=== PATIENT | female | born 1955 | race Caucasian/White ===

== ENCOUNTER 2018-05-04 19:52 | Observation (INO) ==
[2018-05-04] MEDS ORDERED: Ondansetron 4 MG/2 ML VIAL IVP ONE (20:18)
[2018-05-04] MEDS ORDERED: Isovue-370 500 ML INFUS..BTL IV ONE (20:18)
--- NOTE | 2018-05-04 20:27 | Emergency Department Note ---
Disposition Clinical Impression: Vertigo Disposition: Still a Patient Condition: Fair Referrals: Lesli Chavez MD [Primary Care Provider] - Forms: ED Satisfaction Letter General Adult HPI - General Chief complaint: ED Nausea/Vomiting/Diarrhea Stated complaint: n/v virtigo Time Seen by Provider: 05/04/18 20:17 Source: patient, EMS Mode of arrival: EMS Limitations: no limitations Nursing Notes Reviewed: Yes Vital Signs Reviewed: Yes - History of Present Illness HPI Narrative: The patient is a 62 year old female with history of Meneire's disease who presented by EMS for vomiting and vertigo. The patient stated she did not feel well this morning so took a nap around 3pm and then woke up with sudden onset vertigo, sweating, nausea, and vomiting. She also reported left sided weakness in her upper and lower extremity, bilateral hand numbness that is worse on the left, and left sided tinnitus. She said this does not feel like her typical vertigo because it is much more severe. The dizziness worsens with head movement but does not resolve with keeping her head still. The dizziness never goes away and has been constant since waking from her nap. She was seen by family at 3pm who stated she was normal. She denied headache, shortness of breath, history of stroke. She also has a history of diabetes and hypertension. Pain Scale: 5 - Related Data Home Medications Medication Instructions Recorded Confirmed Allopurinol [Zyloprim 100 MG] 100 mg PO DAILY 03/25/16 03/25/16 Atorvastatin [Lipitor] 10 mg PO HS 03/25/16 03/25/16 Lisinopril [Zestril] 10 mg PO DAILY 03/25/16 03/25/16 Metformin HCl [Glumetza] 03/25/16 Naproxen [Naprosyn] 250 mg PO BID 03/25/16 03/25/16 Venlafaxine [Effexor] 37.5 mg PO 03/25/16 Previous Rx's Medication Instructions Recorded Meclizine HCl [Verticalm] 25 mg PO TID PRN #15 tablet 03/25/16 Ondansetron ODT [Zofran ODT] 4 mg SL Q6HR PRN #5 tab.rapdis 03/25/16 Allergies Allergy/AdvReac Type Severity Reaction Status Date / Time cephalexin Allergy Anaphylaxis Verified 03/25/16 16:19 Penicillins Allergy Anaphylaxis Verified 05/06/17 13:55 Sulfa (Sulfonamide Allergy Swelling Verified 05/06/17 13:55 Antibiotics) of Lip/Tongue/Throat Tetracyclines Allergy Anaphylaxis Verified 05/06/17 13:55 acetaminophen [From Percocet] AdvReac Hallucinati Verified 05/06/17 13:55 ng Oxycodone [From Percocet] AdvReac Hallucinati Verified 05/06/17 13:55 ng Review of Systems: As Per HPI Constitutional: Reports: weakness (left upper and lower extremity). Denies: fever, chills, weight change Eyes: Denies: eye pain, vision change ENT ED: Reports: other (left sided tinnitus). Denies: ear pain Cardiovascular: Reports: chest pain. Denies: dyspnea on exertion, edema Respiratory: Denies: cough, dyspnea, wheezes Gastrointestinal: Reports: abdominal pain, nausea, vomiting. Denies: diarrhea, hematemesis Musculoskeletal: Denies: neck pain Neurological: Reports: weakness, numbness, vertigo. Denies: headache, paresthesias Hematological/Lymphatic: Denies: easy bleeding Past Medical History - Past Medical History Attestation: Yes The following information was validated with the patient. Source: patient Medical history: Reports: diabetes, hypertension, other (meneires disease) Psychiatric history: Reports: no psych history - Social History Smoking Status: Never smoker Smokeless Tobacco Status: No Alcohol use: Reports: none Drug use: Reports: none Physical Exam - General Limitations: no limitations General appearance: alert - Head Head exam: atraumatic, normocephalic - Eye Eye exam: Present: PERRL, EOMI, other (patient keeping her eyes closed throughout examination). Absent: miosis, mydriasis - ENT ENT exam: mucous membranes moist - Neck Neck exam: Present: normal inspection, full ROM, trachea midline - Chest Chest inspection: Present: normal inspection, symmetric chest wall rise - Respiratory Respiratory exam: Present: normal lung sounds bilaterally. Absent: respiratory distress, wheezes - Cardiovascular Cardiovascular exam: Present: regular rate, tachycardia, normal heart sounds - Abdominal Exam Abdominal exam: Present: soft, Non-Tender, normal bowel sounds. Absent: distention, guarding, rebound - Extremities Exam Extremities exam: Present: normal capillary refill. Absent: tenderness, pedal edema - Neurological Exam Neurological exam: Present: alert, CN II-XII intact - Expanded Neurological Exam Speech: Present: fluid speech Cerebellar function: finger to nose: Abnormal Left, heel to kay: Normal Motor strength - LUE: 4/5 Motor strength - RUE: 5/5 Motor strength - LLE: 4/5 Motor strength - RLE: 5/5 Upper motor neuron exam: pronator drift: Present on left, sensory extinction: Present on left (sensory diminished on left side) - Psychiatric Psychiatric exam: Present: normal affect, normal mood - Skin Skin exam: Present: warm, dry, intact Course Vital Signs Temperature 97.5 F L 05/04/18 19:58 Pulse Rate 98 05/04/18 19:58 Respiratory Rate 16 05/04/18 19:58 Blood Pressure 146/75 05/04/18 19:58 O2 Sat by Pulse Oximetry 100 05/04/18 19:58 Temperature 97.5 F L 05/04/18 19:58 Pulse Rate 98 05/04/18 21:17 Respiratory Rate 16 05/04/18 21:17 Blood Pressure 141/71 05/04/18 21:17 O2 Sat by Pulse Oximetry 100 05/04/18 20:37 Oxygen Delivery Oxygen Delivery Room Air Medical Decision Making - Lab Data Result diagrams: 05/04/18 20:41 05/04/18 20:41 Lab Results 05/04/18 05/04/18 05/04/18 Range/Units 20:41 20:41 20:41 WBC 15.0 H (4.3-11.1) K/mcL RBC 4.86 (3.82-4.97) M/mcL Hgb 12.7 (11.5-15.4) g/dL Hct 38.3 (35.3-44.9) % MCV 78.8 L (83.0-100.0) fL MCH 26.1 L (28.0-33.3) pg MCHC 33.2 (31.6-35.5) g/dL RDW 15.1 H (11.5-14.5) % Plt Count 521 H (140-400) K/mcL MPV 9.8 (9.4-12.4) fL Immature Gran % 0.7 (0-4) % Seg Neutrophils % 73.8 % Lymphocytes % 18.3 % Monocytes % 6.0 % Eosinophils % 0.9 % Basophils % 0.3 % Neutrophils # 11.1 H (1.6-8.9) K/mcL Lymphocytes # 2.8 (0.6-4.6) K/mcL Monocytes # 0.9 (0.0-1.3) K/mcL Eosinophils # 0.1 (0.0-0.6) K/mcL Basophils # 0.0 (0.0-0.2) K/mcL PT 11.2 (9.4-12.1) Seconds INR 1.0 APTT 34.9 (26.0-36.0) Seconds Sodium 136 (136-145) mEq/L Potassium 3.8 (3.5-5.1) mEq/L Chloride 102 (98-107) mEq/L Carbon Dioxide 24 (23-29) mEq/L BUN 20 (8-23) mg/dL Creatinine 1.01 (0.60-1.20) mg/dL Est GFR ( Amer) > 60 (> 60) Est GFR (Non-Af Amer) 55 L (> 60) BUN/Creatinine Ratio 20 (6-26) Glucose 170 H (70-105) mg/dL Calculated Osmolality 289 (280-300) Calcium 10.3 (8.6-10.3) mg/dL Troponin I < 0.03 (< 0.04) ng/mL
--- NOTE | 2018-05-04 20:31 | Emergency Department Note ---
Addendum entered and electronically signed by Abelardo Joshua DO 05/04/18 21:53 : I have re-performed and reviewed the history documented by the medical student, and I confirm its accuracy except as noted below Original Note: Disposition Clinical Impression: Vertigo Stroke Qualifiers: CVA mechanism: unspecified Qualified Code(s): I63.9 - Cerebral infarction, unspecified Nausea and vomiting Qualifiers: Vomiting type: unspecified Vomiting Intractability: non-intractable Qualified Code(s): R11.2 - Nausea with vomiting, unspecified Disposition: Admitted As Inpatient Condition: Fair Forms: ED Satisfaction Letter Time of Disposition: 21:46 General Adult HPI - General Chief complaint: ED Nausea/Vomiting/Diarrhea Stated complaint: n/v virtigo Time Seen by Provider: 05/04/18 20:17 Source: patient, EMS Mode of arrival: EMS Limitations: no limitations Nursing Notes Reviewed: Yes Vital Signs Reviewed: Yes - History of Present Illness HPI Narrative: Patient is a 62-year-old female that presents the emergency department with dizziness and weakness on the left side. Patient states that she did have a headache today and laid down around 3 PM. Family states that this is her last known well. Patient states that she woke up and she felt extremely dizzy like her vertigo symptoms with her Meniere's disease. Patient states that she then noticed that she was having some numbness and decreased strength in her left upper and lower extremity. Family states that her speech seems to be appropriate at this time. Denies any history of strokes. Pain Scale: 5 - Related Data Home Medications Medication Instructions Recorded Confirmed Allopurinol [Zyloprim 100 MG] 100 mg PO DAILY 03/25/16 03/25/16 Atorvastatin [Lipitor] 10 mg PO HS 03/25/16 03/25/16 Lisinopril [Zestril] 10 mg PO DAILY 03/25/16 03/25/16 Venlafaxine [Effexor] 37.5 mg PO 03/25/16 Aspirin Enteric Coated [Aspirin EC] 81 mg PO DAILY 05/04/18 05/04/18 Fenofibrate,Micronized 134 mg PO DAILY 05/04/18 05/04/18 [Fenofibrate] Metformin HCl [Metformin HCl] 1,000 mg PO BID 05/04/18 05/04/18 Previous Rx's Medication Instructions Recorded Meclizine HCl [Verticalm] 25 mg PO TID PRN #15 tablet 03/25/16 Allergies Allergy/AdvReac Type Severity Reaction Status Date / Time cephalexin Allergy Anaphylaxis Verified 03/25/16 16:19 Penicillins Allergy Anaphylaxis Verified 05/06/17 13:55 Sulfa (Sulfonamide Allergy Swelling Verified 05/06/17 13:55 Antibiotics) of Lip/Tongue/Throat Tetracyclines Allergy Anaphylaxis Verified 05/06/17 13:55 acetaminophen [From Percocet] AdvReac Hallucinati Verified 05/06/17 13:55 ng Oxycodone [From Percocet] AdvReac Hallucinati Verified 05/06/17 13:55 ng All systems ED: reviewed and negative except as stated. Gastrointestinal: Reports: vomiting Neurological: Reports: headache, weakness, numbness Past Medical History - Past Medical History Medical history: Reports: diabetes, hypertension Psychiatric history: Reports: no psych history - Social History Smoking Status: Never smoker Smokeless Tobacco Status: No Alcohol use: Reports: none Drug use: Reports: none Physical Exam - General Limitations: no limitations General appearance: alert, in distress - Head Head exam: atraumatic, normocephalic - Eye Eye exam: Present: normal appearance, EOMI - Neck Neck exam: Present: normal inspection, full ROM, trachea midline - Respiratory Respiratory exam: Present: normal lung sounds bilaterally. Absent: respiratory distress, wheezes - Cardiovascular Cardiovascular exam: Present: regular rate, normal rhythm, normal heart sounds, +S1, +S2 - Abdominal Exam Abdominal exam: Present: soft, Non-Tender, normal bowel sounds - Neurological Exam Neurological exam: Present: alert, oriented X3, CN II-XII intact - Expanded Neurological Exam Speech: Present: fluid speech Cranial nerves: EOM function (II, III, IV, ): Normal, facial sensation (V): Normal, facial palsy (VII): Normal, gag reflex (IX): Normal, spinal accessory function (XI): Normal, tongue deviation (XII): Normal Cerebellar function: finger to nose: Abnormal Left, heel to kay: Normal Motor strength - LUE: 4/5 Motor strength - RUE: 5/5 Motor strength - LLE: 4/5 Motor strength - RLE: 5/5 Upper motor neuron exam: pronator drift: Present of right Sensory exam upper extremity: light touch: Normal Sensory exam lower extremity: light touch: Normal Coma Scale Eye Opening: Spontaneous Coma Scale Motor Response: Obeys Commands Coma Scale Verbal Response: Oriented Coma Scale Total: 15 - Psychiatric Psychiatric exam: Present: normal affect, normal mood - Skin Skin exam: Present: warm, dry, intact Course Vital Signs Temperature 97.5 F L 05/04/18 19:58 Pulse Rate 98 05/04/18 19:58 Respiratory Rate 16 05/04/18 19:58 Blood Pressure 146/75 05/04/18 19:58 O2 Sat by Pulse Oximetry 100 05/04/18 19:58 Temperature 97.5 F L 05/04/18 19:58 Pulse Rate 102 05/04/18 20:37 Respiratory Rate 22 05/04/18 20:37 Blood Pressure 149/72 05/04/18 20:37 O2 Sat by Pulse Oximetry 100 05/04/18 20:37 Oxygen Delivery Oxygen Delivery Room Air Medical Decision Making - MDM Narrative Medical decision making narrative: Due the patient having a high concern for strokelike symptoms we will obtain CT of the head, CTA of the head and neck. Patient also received laboratory testing. [facility] called and spoke to Dr. simmons the attending and informed them that the head CT was negative for acute bleed. It is a mildly elevated white count of 15.0. This is likely secondary to the patient having vomiting. Patient has no other infectious signs. Patient will be given meclizine and Zofran for her symptoms. Patient was evaluated by the stroke neurologist at [facility]. She did not feel that the patient was a candidate for TPA and I agree with her assessment. Patient is outside the window for receiving TPA. The MRI will be ordered and the patient will be admitted to the hospital for further evaluation and management. Called spoke the admitting hospitalist and he has accepted the patient to their service. Patient be admitted to the hospital at this time for further evaluation and management. I discussed with the hospitals that this patient likely needs a higher level of care due to concern for possible posterior stroke and would need a closer monitoring in case there is swelling and worsening of the patient's symptoms. He was in agreement with this and stated that he would like the patient placed in 2 N. - Medical Records Medical records reviewed: Yes I reviewed the patient's medical records. - Lab Data Lab results reviewed: Yes I reviewed the patient's lab results. Result diagrams: 05/04/18 20:41 05/04/18 20:41 Lab Results 05/04/18 05/04/18 05/04/18 Range/Units 20:41 20:41 20:41 WBC 15.0 H (4.3-11.1) K/mcL RBC 4.86 (3.82-4.97) M/mcL Hgb 12.7 (11.5-15.4) g/dL Hct 38.3 (35.3-44.9) % MCV 78.8 L (83.0-100.0) fL MCH 26.1 L (28.0-33.3) pg MCHC 33.2 (31.6-35.5) g/dL RDW 15.1 H (11.5-14.5) % Plt Count 521 H (140-400) K/mcL MPV 9.8 (9.4-12.4) fL Immature Gran % 0.7 (0-4) % Seg Neutrophils % 73.8 % Lymphocytes % 18.3 % Monocytes % 6.0 % Eosinophils % 0.9 % Basophils % 0.3 % Neutrophils # 11.1 H (1.6-8.9) K/mcL Lymphocytes # 2.8 (0.6-4.6) K/mcL Monocytes # 0.9 (0.0-1.3) K/mcL Eosinophils # 0.1 (0.0-0.6) K/mcL Basophils # 0.0 (0.0-0.2) K/mcL PT 11.2 (9.4-12.1) Seconds INR 1.0 APTT 34.9 (26.0-36.0) Seconds Sodium 136 (136-145) mEq/L Potassium 3.8 (3.5-5.1) mEq/L Chloride 102 (98-107) mEq/L Carbon Dioxide 24 (23-29) mEq/L BUN 20 (8-23) mg/dL Creatinine 1.01 (0.60-1.20) mg/dL Est GFR ( Amer) > 60 (> 60) Est GFR (Non-Af Amer) 55 L (> 60) BUN/Creatinine Ratio 20 (6-26) Glucose 170 H (70-105) mg/dL Calculated Osmolality 289 (280-300) Calcium 10.3 (8.6-10.3) mg/dL Troponin I < 0.03 (< 0.04) ng/mL - Radiology Data Radiology results reviewed: Yes I reviewed the patient's radiology results. - EKG Data EKG #1 EKG attestation: Yes I reviewed and interpreted this EKG. EKG results narrative: EKG shows a sinus rhythm at a rate of 90 bpm AK interval of 14, QRS duration 90 , QTc of 478 with a normal axis. No evidence of STEMI on EKG. This is compared to previous EKG on 05/06/70. NIH Stroke Scale - Level of Consciousness LOC: Alert - LOC Questions LOC Questions: Answers both correctly - LOC Commands LOC Commands: Performs both correctly - Best Gaze Best Gaze: Normal - Visual Visual: No visual loss - Facial Palsy Facial Palsy: Normal - Motor Arms Motor Arm-Left: Drift, does NOT hit bed Motor Arm-Right: No drift for 10 seconds - Motor Legs Motor Leg-Left: Some effort against gravity, limb drifts to bed Motor Leg-Right: No drift for 5 seconds - Limb Ataxia Limb Ataxia: Present in ONE limb - Sensory Sensory: Normal - Best Language Best Language: No aphasia - Dysarthria Dysarthria: Normal - Extinction and Inattention Extinction and Inattention: Normal - NIHSS Total Score NIHSS Total Score: 4
[2018-05-04 20:45] LABS: Basophils % 0.3 %; Eosinophils # 0.1 K/mcL (0.0-0.6); Eosinophils % 0.9 %; Hematocrit 38.3 % (35.3-44.9); Hemoglobin 12.7 g/dL (11.5-15.4); Immature Granulocytes % 0.7 % (0-4); Lymphocytes # 2.8 K/mcL (0.6-4.6); Lymphocytes % 18.3 %; Mean Corpuscular HGB Conc 33.2 g/dL (31.6-35.5); Mean Corpuscular Hemoglobin 26.1 pg (28.0-33.3); Mean Corpuscular Volume 78.8 fL (83.0-100.0); Mean Platelet Volume 9.8 fL (9.4-12.4); Monocytes # 0.9 K/mcL (0.0-1.3); Neutrophils # 11.1 K/mcL (1.6-8.9); Platelet Count 521 K/mcL (140-400); Red Blood Count 4.86 M/mcL (3.82-4.97); Red Cell Distribution Width 15.1 % (11.5-14.5); Segmented Neutrophils % 73.8 %
[2018-05-04 20:51] LABS: Prothrombin Time 11.2 Seconds (9.4-12.1)
[2018-05-04 20:53] LABS: Activated Partial Thrombo Time 34.9 Seconds (26.0-36.0)
[2018-05-04 21:02] LABS: BUN/Creatinine Ratio 20 (6-26); Blood Urea Nitrogen 20 mg/dL (8-23); Calcium 10.3 mg/dL (8.6-10.3); Carbon Dioxide 24 mEq/L (23-29); Chloride 102 mEq/L (98-107); Glucose 170 mg/dL (70-105); Osmolality,Calculated 289 (280-300); Potassium 3.8 mEq/L (3.5-5.1); Sodium 136 mEq/L (136-145); eGFR For Non-African Americans 55 (> 60)
[2018-05-04 21:03] LABS: Troponin I < 0.03 ng/mL (< 0.04)
[2018-05-04] MEDS ORDERED: Aspirin 81 MG TAB.CHEW PO ONE (21:42)
[2018-05-04] MEDS ORDERED: Ondansetron ODT 4 MG TAB.RAPDIS SL PRN (22:00)
[2018-05-04] MEDS ORDERED: *HR* Promethazine 25 MG/ML VIAL IVP PRN (22:23)
[2018-05-04] MEDS ORDERED: Scopolamine Patch 1.5 MG PATCH.TD72 TD SCH (22:30)
[2018-05-04] MEDS ORDERED: Ringers Solution, Lactated 1,000 ML IVC SCH ×2 (22:45→23:33)
--- NOTE | 2018-05-04 22:48 | Internal Med History&Physical ---
<Calista Rhodes M - Last Filed: 05/05/18 01:10> Date of Encounter: 05/05/18 Time of Encounter: 22:48 Internal Medicine - H&P: HPI Chief complaint: vertigo & left sided weakness Admitted From: Emergency Dept History of present illness: Ms. Cobb is a 62 year old female hx Menieres disease and diabetes presented to ED for vertigo and left sided weakness. Friday morning she awoke with headache, nausea and dizziness worse than typical episodes of vertigo. She could not tolerate breakfast so she went back to bed. She got up at 11am and was able to run errands but remained dizzy and noticed decrease hearing in left ear. She ate small lunch and took nap but awoken from sleep with nausea, diaphoresis, diffuse body pain and projectile vomiting - then realized left sides arm and leg weakness. Associated symptoms of confusion, bilateral hands & feet numbness, "drunk feeling" and head pain near left ear. In ED, stroke alert called and vitals stable. Head CT did not show acute process. [facility] neurology evaluated and decided she was not a candidate for TPA. Given 325 aspirin - also meclizine and zofran with little improvement. PMHx includes HTN and poorly controlled DM but no history of stroke, TID, CAD or HI. She has had 2 days of loose diarrhea without red, black or white colors. Admits to chest pressure worse with deep breaths but no pain and abdominal pain. She reports recent unintentional weight loss of 9 lbs in one month, hair loss and temperature intolerance. Family history of mother with several TIAs starting in her 60s. Denies tobacco, EtOH or illicit drug use. Past Med Surg Social Fam HX - Past Medical History Medical history: diabetes, hypertension Additional medical history: fatty liver Psychiatric history: no psych history - Past Surgical History Additional surgical history: sigmoid colectemy - Social History Smoking Status: Never smoker Smokeless Tobacco Status: No Alcohol use: none Drug use: none Internal Medicine - H&P: Meds Allopurinol [Zyloprim 100 MG] 100 mg PO DAILY 03/25/16 [History] Atorvastatin [Lipitor] 10 mg PO HS 03/25/16 [History] Lisinopril [Zestril] 10 mg PO DAILY 03/25/16 [History] Meclizine HCl [Verticalm] 25 mg PO TID PRN #15 tablet 03/25/16 [Rx] Venlafaxine [Effexor] 37.5 mg PO DAILY 03/25/16 [History] Aspirin Enteric Coated [Aspirin EC] 81 mg PO DAILY 05/04/18 [History] Fenofibrate,Micronized [Fenofibrate] 134 mg PO DAILY 05/04/18 [History] Metformin HCl [Metformin HCl] 1,000 mg PO BID 05/04/18 [History] 3 Allergy/AdvReac Type Severity Reaction Status Date / Time cephalexin Allergy Anaphylaxis Verified 03/25/16 16:19 Penicillins Allergy Anaphylaxis Verified 05/06/17 13:55 Sulfa (Sulfonamide Allergy Swelling Verified 05/06/17 13:55 Antibiotics) of Lip/Tongue/Throat Tetracyclines Allergy Anaphylaxis Verified 05/06/17 13:55 acetaminophen [From Percocet] AdvReac Hallucinati Verified 05/06/17 13:55 ng Oxycodone [From Percocet] AdvReac Hallucinati Verified 05/06/17 13:55 ng All Systems PM: A 10-system review of systems was performed and is negative for pertinent findings except as documented above in the HPI. - Constitutional Constitutional: excessive sweating, fatigue, weakness, weight loss - EENT Eyes: as per HPI, blurry vision, diplopia, photophobia Nose, mouth and throat: no dysphagia - Cardiovascular Cardiovascular ROS IM: diaphoresis, lightheadedness, no chest pain, no dyspnea, no palpitations, no syncope - Respiratory Respiratory: pain on inspiration, no cough, no dyspnea on exertion, no wheezing - Gastrointestinal Gastrointestinal: abdominal pain, diarrhea, loose stools, vomiting, no coffee ground emesis, no constipation, no melena - Genitourinary Genitourinary: no dysuria, no urinary frequency, no urinary incontinence - Neurological Neurological ROS: as per HPI, abnormal hearing, confusion, disequilibrium, dizziness, headache(s), paresthesias, vertigo, weakness, no behavioral changes - Endocrine Endocrine IM: cold intolerance, fatigue, heat intolerance, other - Constitutional Vitals: Temp Pulse Resp BP Pulse Ox 97.5 F L 97 28 140/66 100 05/04/18 19:58 05/04/18 22:19 05/04/18 22:19 05/04/18 22:19 05/04/18 22:19 General appearance: Present: cooperative, mild distress, A&O X 3, answers questions appropriately Exam: resting in bed with eyes closed - Head Head exam: Present: atraumatic, normocephalic - Eye Eye exam: Present: EOMI, PERRL Pupils: Present: normal accommodation - ENT ENT exam: Present: mucous membranes dry, normal oropharynx - Respiratory Respiratory exam: Present: CTAB. Absent: rales, wheezes - Cardiovascular Cardiovascular exam: Present: RRR. Absent: gallop, rubs - GI/Abdominal GI/Abdominal exam: Present: hypoactive bowel sounds, tenderness. Absent: guarding, mass Additional comments: mild epigastric tenderness - Extremities Exam Extremities exam: Present: full ROM, radial pulses palpable and symmetrical. Absent: pedal edema, tenderness - Neurological Exam Neurological exam: Present: alert, oriented X3, pronater drift, facial droop. Absent: strengths equal and symetr throughout, speech deficit Additional comments: decrease hearing on left side, decreased facial sensation to left side, decrease strength to left UE +4 LE +4, with finger to nose test and heel kay both struggled with left side, unable to fully open left eye - Psychiatric Psychiatric exam: Present: normal affect, normal mood Internal Med - H&P Results - Labs CBC & Chem 7: 05/04/18 20:41 05/04/18 20:41 - Assessment and plan (1) Stroke Current Visit: Yes Status: Suspected Assessment and plan: Concern for stroke v TIA with possible contribution form Menieres disease. Head CT normal and MRI shows no acute changes but chronic microvasular ischemic changes. Already given loading dose aspirin. - Neurology consult - MRA head & neck tomorrow - echo ordered - zofran and reglan PRN - scopolamine patch Qualifiers: CVA mechanism: unspecified Qualified Code(s): I63.9 - Cerebral infarction, unspecified (2) Diabetes Current Visit: Yes Status: Chronic Assessment and plan: Poorly controlled at home using only oral against - hold metformin - start low dose ISS - f/u with PCP Dr Lesli Chavez Qualifiers: Diabetes mellitus type: type 2 Diabetes mellitus jail insulin use: without jail use Diabetes mellitus complication status: with hyperglycemia Qualified Code(s): E11.65 - Type 2 diabetes mellitus with hyperglycemia (3) Hypertension Current Visit: Yes Status: Chronic Assessment and plan: Monitor and tolerate SBP up to 180 - continue lisinopril Qualifiers: Hypertension type: essential hypertension Qualified Code(s): I10 - Essential (primary) hypertension (4) Diarrhea Current Visit: Yes Status: Acute Assessment and plan: Unknown etiology but likely self limiting. WBC 15.0 - monitor for reoccurrence - no need to test for C dif at this time - IVF LR 1L Qualifiers: Diarrhea type: unspecified type Qualified Code(s): R19.7 - Diarrhea, unspecified (5) Thyroid nodule Current Visit: Yes Status: Acute Assessment and plan: Nodule was new incidental finding on CT - TSH ordered - F/U with PCP for possible US (6) DVT prophylaxis Current Visit: Yes Status: Acute Assessment and plan: heparin SQ - Time Spent With Patient Total time spent is greater than 50% in coordination of care (as documented) at patient's floor/unit and/or counseling patient: Greater than 35 minutes <Jalen Solitario - Last Filed: 05/05/18 01:44> Date of Encounter: 05/05/18 All Systems PM: A 10-system review of systems was performed and is negative for pertinent findings except as documented above in the HPI. - Constitutional Vitals: Temp Pulse Resp BP Pulse Ox 98.0 F 93 16 145/75 100 05/04/18 23:10 05/04/18 23:37 05/04/18 23:37 05/04/18 23:37 05/04/18 23:10 Internal Med - H&P Results - Labs CBC & Chem 7: 05/04/18 20:41 05/04/18 20:41 - Time Spent With Patient Total time spent is greater than 50% in coordination of care (as documented) at patient's floor/unit and/or counseling patient: - Attending Attestation Maribel Cobb is a 62 year old woman with a history of dyslipidemia, hypertension, diabetes and Menieres disease who presents to the ER with the complaint of acute onset vertigo, nausea, vomiting and subsequent left sided weakness and numbness that started shortly after waking up from a nap at 3pm. This was accompanied by tinnitus and the dizziness worsened with movements ultimately having what seems to be projectile vomiting. On arrival here she remained hemodynamically stable. Stroke alert was called and she had CT head and CTA head/neck done which were unremarkable. We were able to get a brain MRI done which identified only chronic microangiopathic ischemic changes. On my assessment the patient says that she feels a little bit better stating that her head no longer feels like lead. On physical exam it is noticeable that she is not able to keep her left eyelid (even though she thinks she is. No nuchal rigidity. Deviation of her labial commissure to the left and left eyelid remains closed in spite of active efforts to open. EOMI and PERRLA. Cardiac and pulmonary auscultation clear. Abdomen mildly tender to palpation diffusely but no peritoneal reaction. No signs of peripheral edema. Left arm pronator drift is present. 3/5 LUE & LLE strength. 5/5 RUE & RLE strength. Labs revealing for glucose of 151, negative troponin, hemoglobin of 12.7 with MCV of 78.8 and MCH of 26, WBC of 15. We will admit to monitored setting for close watch. Remain on telemetry. May require MRA however we will consult neurology first for further recommendations. PT consultation is advised. Loading dose of aspirin 325 administered and will come to new with 81 mg daily. Patient and her state that she has an intolerance to statin therapy for which reason she is currently on fenofibrate. We will check A1c and lipid panel among other comprehensive labs. Suspect leukocytosis is secondary to dehydration from upper GI losses as the patient reports having diarrhea for the past 2 days and profuse vomiting today with oral intolerance. We will give IV fluids and recheck labs in the morning to assess. Anemia noted seemingly microcytic hypochromic possibly from chronic GI loss; will send iron studies and assess FOBT.
--- NOTE | 2018-05-04 23:16 | Emergency Department Note ---
Disposition Clinical Impression: Vertigo Stroke Qualifiers: CVA mechanism: unspecified Qualified Code(s): I63.9 - Cerebral infarction, unspecified Nausea and vomiting Qualifiers: Vomiting type: unspecified Vomiting Intractability: non-intractable Qualified Code(s): R11.2 - Nausea with vomiting, unspecified Disposition: Admitted As Inpatient Condition: Fair General Adult HPI - General Chief complaint: ED Nausea/Vomiting/Diarrhea Stated complaint: n/v vertigo Time Seen by Provider: 05/04/18 20:17 Source: patient, EMS Mode of arrival: EMS Limitations: no limitations - History of Present Illness Pain Scale: 5 - Related Data Home Medications Medication Instructions Recorded Confirmed Allopurinol [Zyloprim 100 MG] 100 mg PO DAILY 03/25/16 05/04/18 Atorvastatin [Lipitor] 10 mg PO HS 03/25/16 05/04/18 Lisinopril [Zestril] 10 mg PO DAILY 03/25/16 05/04/18 Venlafaxine [Effexor] 37.5 mg PO DAILY 03/25/16 05/04/18 Aspirin Enteric Coated [Aspirin EC] 81 mg PO DAILY 05/04/18 05/04/18 Fenofibrate,Micronized 134 mg PO DAILY 05/04/18 05/04/18 [Fenofibrate] Metformin HCl [Metformin HCl] 1,000 mg PO BID 05/04/18 05/04/18 Previous Rx's Medication Instructions Recorded Meclizine HCl [Verticalm] 25 mg PO TID PRN #15 tablet 03/25/16 Allergies Allergy/AdvReac Type Severity Reaction Status Date / Time cephalexin Allergy Anaphylaxis Verified 03/25/16 16:19 Penicillins Allergy Anaphylaxis Verified 05/06/17 13:55 Sulfa (Sulfonamide Allergy Swelling Verified 05/06/17 13:55 Antibiotics) of Lip/Tongue/Throat Tetracyclines Allergy Anaphylaxis Verified 05/06/17 13:55 acetaminophen [From Percocet] AdvReac Hallucinati Verified 05/06/17 13:55 ng Oxycodone [From Percocet] AdvReac Hallucinati Verified 05/06/17 13:55 ng Constitutional: Reports: weakness (left upper and lower extremity). Denies: fever, chills, weight change Eyes: Denies: eye pain, vision change ENT ED: Reports: other (left sided tinnitus). Denies: ear pain Cardiovascular: Reports: chest pain. Denies: dyspnea on exertion, edema Respiratory: Denies: cough, dyspnea, wheezes Gastrointestinal: Reports: vomiting Musculoskeletal: Denies: neck pain Neurological: Reports: headache, weakness, numbness Hematological/Lymphatic: Denies: easy bleeding Past Medical History - Past Medical History Medical history: Reports: diabetes, hypertension Psychiatric history: Reports: no psych history - Social History Smoking Status: Never smoker Smokeless Tobacco Status: No Alcohol use: Reports: none Drug use: Reports: none Physical Exam - General Limitations: no limitations General appearance: alert, in distress Course Vital Signs Temperature 97.5 F L 05/04/18 19:58 Pulse Rate 98 05/04/18 19:58 Respiratory Rate 16 05/04/18 19:58 Blood Pressure 146/75 05/04/18 19:58 O2 Sat by Pulse Oximetry 100 05/04/18 19:58 Temperature 98.0 F 05/04/18 23:10 Pulse Rate 96 05/04/18 23:10 Respiratory Rate 18 05/04/18 23:10 Blood Pressure 145/75 05/04/18 23:10 O2 Sat by Pulse Oximetry 100 05/04/18 23:10 Oxygen Delivery Oxygen Delivery Room Air Medical Decision Making - Lab Data Result diagrams: 05/04/18 20:41 05/04/18 20:41 Lab Results 05/04/18 05/04/18 05/04/18 Range/Units 20:41 20:41 20:41 WBC 15.0 H (4.3-11.1) K/mcL RBC 4.86 (3.82-4.97) M/mcL Hgb 12.7 (11.5-15.4) g/dL Hct 38.3 (35.3-44.9) % MCV 78.8 L (83.0-100.0) fL MCH 26.1 L (28.0-33.3) pg MCHC 33.2 (31.6-35.5) g/dL RDW 15.1 H (11.5-14.5) % Plt Count 521 H (140-400) K/mcL MPV 9.8 (9.4-12.4) fL Immature Gran % 0.7 (0-4) % Seg Neutrophils % 73.8 % Lymphocytes % 18.3 % Monocytes % 6.0 % Eosinophils % 0.9 % Basophils % 0.3 % Neutrophils # 11.1 H (1.6-8.9) K/mcL Lymphocytes # 2.8 (0.6-4.6) K/mcL Monocytes # 0.9 (0.0-1.3) K/mcL Eosinophils # 0.1 (0.0-0.6) K/mcL Basophils # 0.0 (0.0-0.2) K/mcL PT 11.2 (9.4-12.1) Seconds INR 1.0 APTT 34.9 (26.0-36.0) Seconds Sodium 136 (136-145) mEq/L Potassium 3.8 (3.5-5.1) mEq/L Chloride 102 (98-107) mEq/L Carbon Dioxide 24 (23-29) mEq/L BUN 20 (8-23) mg/dL Creatinine 1.01 (0.60-1.20) mg/dL Est GFR ( Amer) > 60 (> 60) Est GFR (Non-Af Amer) 55 L (> 60) BUN/Creatinine Ratio 20 (6-26) Glucose 170 H (70-105) mg/dL Calculated Osmolality 289 (280-300) Calcium 10.3 (8.6-10.3) mg/dL Troponin I < 0.03 (< 0.04) ng/mL Attestation Statement - Attestation Attestation: I examined this patient and my medical decision-making was reviewed with the Resident Physician. I agree with the documented findings, disposition and treatment plan as described except to the extent set forth below. Patient with vertigo and abnormal cerebellar testing on exam, along with unilateral extremity weakness. Concerning for posterior circulation stroke. MRI has been ordered. Patient is been accepted for admission, left to go to MRI and then to the stepdown unit to be monitored, given the high risk nature of cerebellar infarction if one turns out to be present.
[2018-05-04] MEDS ORDERED: Ondansetron 4 MG/2 ML VIAL IVP PRN (23:40)
[2018-05-04] MEDS ORDERED: Dextrose Gel 15 GM/37.5 ML TUBE PO PRN ×2 (23:40)
[2018-05-04] MEDS ORDERED: Naloxone 0.4 MG/ML INJ IVP PRN (23:50)
[2018-05-04] MEDS ORDERED: Acetaminophen 325 MG TABLET PO PRN (23:58)
[2018-05-05] MEDS ORDERED: Metoclopramide 10 MG/2 ML VIAL IVP PRN (00:16)
[2018-05-05] MEDS ORDERED: Gadolinium Contrast Agent (WT Based) IV PRN (00:16)
[2018-05-05] MEDS: *HR* Heparin 5,000 UNIT/ML VIAL SQ SCH ×2 (05:11→15:19)
[2018-05-05 05:45] LABS: Basophils % 0.1 %; Eosinophils % 0.1 %; Immature Granulocytes % 0.5 % (0-4); Lymphocytes # 2.2 K/mcL (0.6-4.6); Lymphocytes % 14.8 %; Mean Corpuscular HGB Conc 32.6 g/dL (31.6-35.5); Mean Corpuscular Hemoglobin 25.5 pg (28.0-33.3); Mean Platelet Volume 9.7 fL (9.4-12.4); Monocytes # 0.8 K/mcL (0.0-1.3); Monocytes % 5.1 %; Neutrophils # 11.9 K/mcL (1.6-8.9); Platelet Count 517 K/mcL (140-400); Red Blood Count 4.36 M/mcL (3.82-4.97); Red Cell Distribution Width 15.4 % (11.5-14.5); Segmented Neutrophils % 79.4 %
[2018-05-05 05:45] LABS: Immature Reticulocyte % 12.8 % (11.0-38.0); Retculocyte # 0.05 M/mcL (0.05-0.10); Reticulocyte % 1.2 % (1.6-2.8)
[2018-05-05 05:46] LABS: Hemoglobin 11.1 g/dL (11.5-15.4)
[2018-05-05 06:04] LABS: % Iron Saturation 8 % (15-50); Iron 45 mcg/dL (50-170); Transferrin 400 mg/dL (203-362)
[2018-05-05 06:07] LABS: Alanine Aminotransferase 29 Units/L (7-52); Albumin 4.4 g/dL (3.5-5.7); Albumin/Globulin Ratio 1.5 (1.1-2.2); Alkaline Phosphatase 62 Units/L (34-104); Aspartate Amino Transferase 23 Units/L (13-39); BUN/Creatinine Ratio 16 (6-26); Bilirubin,Direct 0.1 mg/dL (0.0-0.2); Bilirubin,Indirect 0.2 mg/dL (0.0-1.2); Bilirubin,Total 0.3 mg/dL (0.3-1.0); Blood Urea Nitrogen 17 mg/dL (8-23); Calcium 9.9 mg/dL (8.6-10.3); Carbon Dioxide 25 mEq/L (23-29); Chloride 104 mEq/L (98-107); Chol/HDL Ratio 3.6 (0-4.9); Cholesterol 188 mg/dL (< 200); Globulin 2.9 g/dL (2.4-3.5); Glucose 124 mg/dL (70-105); HDL Cholesterol 52 mg/dL (40-59); LDL Cholesterol,Calculated 111 mg/dL (0-99); Osmolality,Calculated 287 (280-300); Potassium 4.2 mEq/L (3.5-5.1); Sodium 137 mEq/L (136-145); Total Protein 7.3 g/dL (6.4-8.9); Triglycerides 123 mg/dL (< 150); eGFR For Non-African Americans 52 (> 60)
[2018-05-05 06:17] LABS: Thyroid Stimulating Hormone 1.205 mcIU/mL (0.340-5.600)
[2018-05-05 06:22] LABS: Ferritin 35 ng/mL (10-120)
[2018-05-05 07:14] LABS: Estimated Average Glucose 148 mg/dl; Hemoglobin A1C 6.8 %
--- NOTE | 2018-05-05 08:28 | Internal Med Progress Note ---
<Tejal Randolph R - Last Filed: 05/05/18 15:23> Hospitalist Progress Note - Encounter Date of Encounter: 05/05/18 Time of Encounter: 07:30 - Subjective Interval History: HPI: Maribel Cobb is a 62 year old F with a PMH of T2DM, HTN, and Menieres disease that presented to the ED on 05/04/18 with left-sided weakness, vomiting, and vertigo. Yesterday she woke up with a headache, no appetite, and forgetfulness. She left the house to run some errands and at 4 p.m. began feeling dizzy. She felt like the room was spinning and she was off-balance. At this time she laid down and when she woke up from her nap, she was hot, sweating , and couldn't lift her head up. She rolled over and had repeated projectile vomiting. Pt couldn't feel her hands or her feet and didn't feel well enough to get up. She initially had weakness bilaterally, but right-sided weakness resolved. She then just had weakness and decreased sensation on her left side and drooling out of the left side of her mouth. Her tried to give her so Zofran but she didn't feel well enough to take it. Pt has been having left ear fullness and tinnitus since April 14 and took past wk off work due to symptoms. She took chlorphenamine 3 days ago because she thought symptoms might be due to allergies. Pt had nonbloody diarrhea Friday and Friday with loose stools once/hr. No diarrhea since Friday 2 p.m. In 2015 pt was diagnosed with labyrinthitis by a specialist and perscribed 2 rounds of prednisone, which did not improve symptoms. Specialist tried to reproduce dizziness with testing and were not able to. In September PCP Dr. Lesli Chavez diagnosed her with Menieres disease. Pt states she was perscribed 10 mg Hydrochlorothiazide and Zofran and that symptoms and frequency of vertigo improved. Since September pt has only had symptoms once every 3 months. Pt typically feels dizzy, lays down for a nap, and symptoms resolve. Usually does not have n/v with episodes. Last serious episode was about a year ago and she has never had an episode this severe or been hospitalized for an episode. ROS: General: fatigue, no fever/chills Head: 4/10 headache, no dizziness, lightheadedness Neuro: decreased sensation, no numbness, tingling, weakness ENT: tinnitus and hearing loss left ear CV: no chest pain, palpitations Pulm: no coughing, SOB GI: no n/v, diarrhea, constipation : increased urgency every last since last month, no hematuria, dysuria Msk: no muscle pain, joint pain Psych: no anxiety, depression - Exam Vitals: Temp Pulse Resp BP Pulse Ox 97.6 F 92 18 118/67 97 05/05/18 06:56 05/05/18 06:56 05/05/18 06:56 05/05/18 06:56 05/05/18 06:56 Exam: General: normal affect, in no acute distress Eyes: ptosis L eye, no conjunctival injection CV: RRR, no murmurs, no edema Resp: CTAB, no wheezes Abd: soft, nontender, normal bowel sounds Skin: no rashes, bruises Neuro: decreased sensation L middle and lower face, L arm and leg 4/5 strength upper and lower extremity, decreased shoulder shrug and lateral head rotation L unsteady finger to nose L side EOMI, normal jaw opening, eyelid raise, smile, palate elevation, tongue protrusion - Assessment and Plan (1) Stroke Status: Suspected Assessment and Plan: -likely due to her Hx of HTN and Diabetes. - Concern for stroke v TIA with possible contribution from Menieres disease. -Pt presented to ED with left-sided weakness, vomiting, and vertigo. Woke up yesterday with headache, no appetite, forgetful. [place] like room was spinning and off-balance. Laid down and was hot, sweating, and couldn't lift head up after nap. Rolled over and had repeated projectile vomiting. Couldn't feel hands /feet. Decreased sensation and weakness upper and lower extremities, drooling out of left side of mouth. Head CT: no acute intracranial abnormality Head CTA: 2.1 cm left thyroid nodule MRI: minimal nonspecific cerebral white matter T2 hyperintensities compatible with chronic microangiopathic ischemic changes Neurology consultation MRA head and neck today echo pending -Exam findings of decreased sensation L middle and lower face, L arm and leg, 4/ 5 strength upper and lower extremity, decreased shoulder shrug and lateral head rotation L, unsteady finger to nose L side - neurology on board, Currently on ASA 81mg, MRI neck pending (2) Diabetes Status: Chronic Assessment and Plan: T2DM diagnosed 10+ yrs ago Blood glucose 05/04/18 140, improved this morning to 124 HbA1c 6.8 Taking Metformin 1,000 mg PO BID at home, managed by PCP Diabetic diet past 10 yrs, walks 30 minutes a day Hold Metformin, on insulin Follow up with PCP Dr. Lesli Chavez (3) Thyroid nodule Status: Acute Assessment and Plan: 2.1 cm left thyroid nodule was new incidental finding on CT Follow up thyroid US recommended by radiology TSH 1.205 (4) Hypertension Status: Chronic Assessment and Plan: Chronic HTN BP 05/04/18 145/75, most recent BP improved to 118/67 Lisinopril 10 mg PO daily Managed by PCP Lesli Chavez (5) Diarrhea Status: Acute Assessment and Plan: Nonbloody diarrhea Friday and Friday once/hour WBC 15 No loose stools since Friday 2 p.m. 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 Ear fullness/tinnitus began April 14 On exam, pt states that she continues to have difficulty hearing out of left ear (7) Nausea Status: Acute Assessment and Plan: Chronic n/v secondary to Menieres disease Presented to ED 05/04/18 with n/v after episode of projectile vomiting Takes Zofran at home On exam, pt states n/v has resolved Zofran and Reglan PRN Scopolamine patch (8) Dizziness Status: Acute Assessment and Plan: Chronic vertigo secondary to Menieres disease, past episode vasovagal syncope Pt presented to ED with vertigo, vomiting, left-sided weakness On exam, pt states that she no longer feels dizzy Zofran and Reglan PRN Scopolamine patch (9) DVT prophylaxis Status: Acute Assessment and Plan: heparin SQ - Time Spent with Patient Total time spent is greater than 50% in coordination of care (as documented) at patient's floor/unit and/or counseling patient: Internal Medicine: Result - Labs CBC & Chem 7: 05/05/18 04:00 05/05/18 05:27 Labs: Short CBC 05/05/18 Range/Units 04:00 WBC 15.0 H (4.3-11.1) K/mcL Hgb 11.1 L D (11.5-15.4) g/dL Hct 34.0 L (35.3-44.9) % Plt Count 517 H (140-400) K/mcL Neutrophils # 11.9 H (1.6-8.9) K/mcL BMP 05/05/18 05:27 Sodium 137 Potassium 4.2 Chloride 104 Carbon Dioxide 25 BUN 17 Creatinine 1.06 Glucose 124 H Calcium 9.9 Liver Function 05/05/18 Range/Units 05:27 Total Bilirubin 0.3 (0.3-1.0) mg/dL Direct Bilirubin 0.1 (0.0-0.2) mg/dL AST 23 (13-39) Units/L ALT 29 (7-52) Units/L Alkaline Phosphatase 62 (34-104) Units/L Albumin 4.4 (3.5-5.7) g/dL - ABG Interpretation ABG results: PT/INR, D-dimer PT 11.2 Seconds (9.4-12.1) 05/04/18 20:41 Consult Discharge Plan - Plan Additional Instructions: - Follow-up with neurologist as an outpatient for further management of Vestibular migraine. - Follow up with psychologist personnel for Meniere's disease -Consider referral to vestibular therapy for Meniere's disease. -Seated Vestibular Head and Shoulder Exercises -Vestibular Eye Exercises Referrals: Lesli Chavez MD [Primary Care Provider] - 05/08/18 10:30 am Prescriptions: Ferrous Sulfate 325 mg PO DAILY #30 tablet <Maximo Guerrero - Last Filed: 05/10/18 16:59> Hospitalist Progress Note - Encounter Date of Encounter: 05/10/18 - Exam Vitals: Temp Pulse Resp BP Pulse Ox 100.0 F H 94 16 131/70 95 05/05/18 16:14 05/05/18 16:14 05/05/18 16:14 05/05/18 16:14 05/05/18 16:14 - Assessment and Plan (1) Vestibular migraine Status: Resolved (2) Diabetes Status: Chronic (3) Hypertension Status: Chronic (4) Thyroid nodule Status: Chronic (5) Vertigo Status: Resolved - Time Spent with Patient Total time spent is greater than 50% in coordination of care (as documented) at patient's floor/unit and/or counseling patient: Internal Medicine: Result - Labs CBC & Chem 7: 05/05/18 04:00 05/05/18 05:27 - ABG Interpretation ABG results: PT/INR, D-dimer PT 11.2 Seconds (9.4-12.1) 05/04/18 20:41 - Attending Attestation Please see discharge summary of this date. <Tejal Randolph - Last Filed: 05/05/18 15:23> (1) Stroke Qualifiers: CVA mechanism: unspecified Qualified Code(s): I63.9 - Cerebral infarction, unspecified (2) Diabetes Qualifiers: Diabetes mellitus type: type 2 Diabetes mellitus rn plastics insulin use: without detention use Diabetes mellitus complication status: with hyperglycemia Qualified Code(s): E11.65 - Type 2 diabetes mellitus with hyperglycemia (4) Hypertension Qualifiers: Hypertension type: essential hypertension Qualified Code(s): I10 - Essential (primary) hypertension (5) Diarrhea Qualifiers: Diarrhea type: unspecified type Qualified Code(s): R19.7 - Diarrhea, unspecified <Maximo Guerrero A - Last Filed: 05/10/18 16:59> (2) Diabetes Qualifiers: Diabetes mellitus type: type 2 Diabetes mellitus detention insulin use: without rn plastics use Diabetes mellitus complication status: with hyperglycemia Qualified Code(s): E11.65 - Type 2 diabetes mellitus with hyperglycemia (3) Hypertension Qualifiers: Hypertension type: essential hypertension Qualified Code(s): I10 - Essential (primary) hypertension
[2018-05-05] MEDS: Insulin LISPRO 300 UNITS/3 ML VIAL SQ SCH ×3 (08:41→16:24)
[2018-05-05] MEDS ORDERED: Fenofibrate 54 MG TABLET PO SCH (09:00)
[2018-05-05] MEDS ORDERED: Aspirin Enteric Coated 81 MG Tablet PO SCH (09:00)
--- NOTE | 2018-05-05 10:49 | Neurology - Consult Note ---
<Yogi Humphries P - Last Filed: 05/05/18 11:22> Date of Encounter: 05/05/18 Time of Encounter: 09:45 Assessment and Plan (1) TIA (transient ischemic attack) Current Visit: Yes Status: Acute The patient has left sided weakness , numbness and slurred speech The symptoms lasted for about 12 hours She has 2-3 episodes of vertigo past 1 year , but this time it was associated with short term some focal neurological deficit. She is already on aspirin . Reports: CTA head/neck: No acute abnormality MRI : no acute intracranial abnormality , chronic microangiopathic ischaemic changes CT head : no acute abnormality (2) Vertigo Current Visit: Yes Status: Acute This patient has had 3 episodes of vertigo past 1 year: she did work up for vertigo in the past and takes on and off medication for vertigo.This time it was associated with left sided weakness and slurring of speech. She has had nausea, vomiting, dizziness with spinning of objects infront of her , fluctuating hearing loss in her left ear MRI head : No acute abnormality, Minimal nonspecific cerebral white matter T2 hyperintensities compatible with chronic microangiopathic ischemic changes. CTA head/neck: No acute abnormality CT head : no acute abnormality History of Present Illness Chief complaint: Left sided weakness/ vertigo HPI: Ms. Cobb is a 62 year old female with past diagnosis of poorly controlled DM , Hypertension was admitted to [facility] via ED for vertigo and left sided weakness, numbness . The patient mentioned that she had headache, nausea and dizziness that was more severe than she used to have before . she had vertigo for 3 times for past 1 year .This time it was associated with left sided weakness and numbness and slurring of speech . She admits that the weakness lasted for about 12 hours and now it has come to almost normal. She stated that she has had fullness in her left ear , fluctuating loss of hearing with spinning of images infront of her. Now, she has mild vertigo , but denies any nausea and vomiting , spinning of images.She denies any loss of consciousness, fall and head injury, seizure like activity, tick bites,bowel and bladder incontinence,jerky movements or tremors. During my Visit , She was lying comfortably in a bed, well oriented to time, place person. She admits minimal vertigo , but no weakness and numbness in her left arm and leg .She stated that her symptoms have been better almost 99%. Vitals : Tem 97F, BP 118/77,Pul 92 Labs: WBC 15 , Na 37, K 4.2, Hb1AC 6.8 ,Ca 9.9, TSH 1.205 , Folate 12.1 , BUN 17, creatinine 1.06 CTA head/neck: No acute abnormality MRI : no acute intracranial abnormality , chronic microangiopathic ischaemic changes CT head : no acute abnormality Past Med Surg Social Fam HX - Past Medical History Medical history: diabetes, hypertension Additional medical history: fatty liver Psychiatric history: no psych history - Past Surgical History Additional surgical history: sigmoid colectemy - Social History Smoking Status: Never smoker Smokeless Tobacco Status: No Alcohol use: none Drug use: none Medications and Allergies Allopurinol [Zyloprim 100 MG] 100 mg PO DAILY 03/25/16 [History] Atorvastatin [Lipitor] 10 mg PO HS 03/25/16 [History] Lisinopril [Zestril] 10 mg PO DAILY 03/25/16 [History] Meclizine HCl [Verticalm] 25 mg PO TID PRN #15 tablet 03/25/16 [Rx] Venlafaxine [Effexor] 37.5 mg PO DAILY 03/25/16 [History] Aspirin Enteric Coated [Aspirin EC] 81 mg PO DAILY 05/04/18 [History] Fenofibrate,Micronized [Fenofibrate] 134 mg PO DAILY 05/04/18 [History] Metformin HCl [Metformin HCl] 1,000 mg PO BID 05/04/18 [History] 3 Allergy/AdvReac Type Severity Reaction Status Date / Time cephalexin Allergy Anaphylaxis Verified 03/25/16 16:19 Penicillins Allergy Anaphylaxis Verified 05/06/17 13:55 Sulfa (Sulfonamide Allergy Swelling Verified 05/06/17 13:55 Antibiotics) of Lip/Tongue/Throat Tetracyclines Allergy Anaphylaxis Verified 05/06/17 13:55 acetaminophen [From Percocet] AdvReac Hallucinati Verified 05/06/17 13:55 ng Oxycodone [From Percocet] AdvReac Hallucinati Verified 05/06/17 13:55 ng All Systems: The remainder of the systems were reviewed and are negative Physical Examination - Vital Signs Vital Signs: Initial Vital Signs Temp Pulse Resp BP Pulse Ox 97.5 F L 98 16 146/75 100 05/04/18 19:58 05/04/18 19:58 05/04/18 19:58 05/04/18 19:58 05/04/18 19:58 - Constitutional General appearance: comfortable - Neurologic Sensorimotor examination: intact Detailed motor examination: grossly full strength in all extremities Motor examination - right side: 12/20: deltoids, biceps, triceps, wrist flexion, wrist extension, lace stripper, hip flexors, tibialis Anterior, quadriceps, toe extension (EHL), plantarflexion Motor examination - left side: 12/20: deltoids, biceps, triceps, wrist flexion, wrist extension, hip flexors, lace stripper, quadriceps, tibialis Anterior, toe extension (EHL), plantarflexion Detailed sensory examination: intact Reflex and gait examination: normal gait Reflexes: Biceps: 2+, Triceps: 2+, Brachioradialis: 2+, Patella: 2+, Achilles: 2 + Mental Status Examination: awake, oriented to person, oriented to place, oriented to time, follows commands appropriately, answers questions appropriately Cranial nerve examination: PERRL, EOMI, visual colón intact, sensory to face intact, mastication intact, no facial asymmetry is present Cerebellar examination: no dysmetria, performs finger to nose and heel to kay symmetrically without ataxia, no gait ataxia Results - Laboratory Findings CBC and BMP: 05/05/18 04:00 05/05/18 05:27 Abnormal lab findings: Abnormal lab results WBC 15.0 K/mcL (4.3-11.1) H 05/05/18 04:00 Hgb 11.1 g/dL (11.5-15.4) L D 05/05/18 04:00 Hct 34.0 % (35.3-44.9) L 05/05/18 04:00 MCV 78.0 fL (83.0-100.0) L 05/05/18 04:00 MCH 25.5 pg (28.0-33.3) L 05/05/18 04:00 RDW 15.4 % (11.5-14.5) H 05/05/18 04:00 Plt Count 517 K/mcL (140-400) H 05/05/18 04:00 Neutrophils # 11.9 K/mcL (1.6-8.9) H 05/05/18 04:00 Percent Retic 1.2 % (1.6-2.8) L 05/05/18 05:27 Est GFR (Non-Af Amer) 52 (> 60) L 05/05/18 05:27 Glucose 124 mg/dL (70-105) H 05/05/18 05:27 POC Glucose 115 mg/dL (70-99) H 05/05/18 06:58 Hemoglobin A1c 6.8 % (-5.6) H 05/05/18 05:27 Iron 45 mcg/dL (50-170) L 05/05/18 05:27 % Saturation 8 % (15-50) L 05/05/18 05:27 Transferrin 400 mg/dL (203-362) H 05/05/18 05:27 LDL Cholesterol, Calc 111 mg/dL (0-99) H 05/05/18 05:27 Consult Discharge Plan - Plan Referrals: Lesli Chavez MD [Primary Care Provider] - 05/08/18 10:30 am <Mj Red - Last Filed: 05/05/18 16:23> Date of Encounter: 05/05/18 Time of Encounter: 16:15 Assessment and Plan (1) Vestibular migraine Current Visit: Yes Status: Acute I am very suspicious that this patient's symptoms are related to underlying migrainous pathophysiology. Particularly so since her stroke workup was completely negative. Her symptoms consisted of vertigo, intense photophobia, phonophobia, and headache. She also had other signs of focality particularly paresthesias of the left upper and left lower extremities. All of her symptoms have resolved. There is no neuroimaging evidence of ischemia, aneurysm, or infarct. She also has 2 first-degree relatives that have migraine headaches. Although she has never really had migraine headaches himself, is a growing body of evidence in the literature that reports recurrent vertigo, and motion sickness as potential migrainous phenomena. At this juncture her workup is negative and a believe that it is okay for her to be discharged from a neurologic perspective. I will reevaluate her at your request. History of Present Illness HPI: The chart was reviewed, patient was seen and examined independently. Case was also discussed with the resident on neurology service. Ms. Cobb is a 62 year old female who presents with symptoms of vertigo along with intense paresthesias left greater than right with some minimal left-sided weakness. She also had an intense headache with associated nausea and photophobia. She also had phonophobia. Interestingly she has had recurrent episodes of vertigo over the last 5 years or so. She denies any history of migraines however her mother and her son both have them. She mentions that she did have a rather busy day when the symptoms onset and when she was ultimately admitted. She been busy doing yard work and digging in her garden. Her symptoms have all resolved. She has had a CTA of the head and neck, MRA of the head and neck, MRI of the brain. All of the studies are normal and reveal no evidence of previous infarct, intracranial stenosis, or cerebral aneurysm. All Systems: The remainder of the systems were reviewed and are negative Review of Systems: Balance of the systems review is negative. Physical Examination - Vital Signs Vital Signs: Initial Vital Signs Temp Pulse Resp BP Pulse Ox 97.5 F L 98 16 146/75 100 05/04/18 19:58 05/04/18 19:58 05/04/18 19:58 05/04/18 19:58 05/04/18 19:58 - Neurologic Detailed motor examination: full strength in all major muscle groups Motor examination - right side: 5/5: deltoids, biceps, triceps, wrist flexion, wrist extension, lace stripper, hip flexors, tibialis Anterior, quadriceps, toe extension (EHL), plantarflexion Motor examination - left side: 5/5: deltoids, biceps, triceps, wrist flexion, wrist extension, hip flexors, lace stripper, quadriceps, tibialis Anterior, toe extension (EHL), plantarflexion Mental Status Examination: awake, alert, oriented to person, oriented to place, oriented to time, follows commands appropriately, answers questions appropriately, no agnosia, no aphasia, no aproxia Cranial nerve examination: PERRL, EOMI, visual colón intact, corneal reflexes brisk symmetrically, sensory to face intact, mastication intact, no facial asymmetry is present, no dysarthria, hearing is intact symmetrically, soft palate elevates bilaterally upon phonation, gag reflex intact, flexes SCM and trapezius muscles symmetrically with full power, tongue protrudes midline, no atrophy or facial fasiculations present Cerebellar examination: no dysmetria, performs finger to nose and heel to kay symmetrically without ataxia, no gait ataxia, no truncal ataxia, no difficulty with rapid alternating movements Results - Laboratory Findings CBC and BMP: 05/05/18 04:00 05/05/18 05:27 Abnormal lab findings: Abnormal lab results WBC 15.0 K/mcL (4.3-11.1) H 05/05/18 04:00 Hgb 11.1 g/dL (11.5-15.4) L D 05/05/18 04:00 Hct 34.0 % (35.3-44.9) L 05/05/18 04:00 MCV 78.0 fL (83.0-100.0) L 05/05/18 04:00 MCH 25.5 pg (28.0-33.3) L 05/05/18 04:00 RDW 15.4 % (11.5-14.5) H 05/05/18 04:00 Plt Count 517 K/mcL (140-400) H 05/05/18 04:00 Neutrophils # 11.9 K/mcL (1.6-8.9) H 05/05/18 04:00 Percent Retic 1.2 % (1.6-2.8) L 05/05/18 05:27 Est GFR (Non-Af Amer) 52 (> 60) L 05/05/18 05:27 Glucose 124 mg/dL (70-105) H 05/05/18 05:27 Hemoglobin A1c 6.8 % (-5.6) H 05/05/18 05:27 Iron 45 mcg/dL (50-170) L 05/05/18 05:27 % Saturation 8 % (15-50) L 05/05/18 05:27 Transferrin 400 mg/dL (203-362) H 05/05/18 05:27 LDL Cholesterol, Calc 111 mg/dL (0-99) H 05/05/18 05:27
[2018-05-05] MEDS ORDERED: Perflutren Lipid Microsphere 1.3 ML in 0.9 % Sodium Chloride 8.7 ML IVP ONE (11:08)
--- NOTE | 2018-05-05 12:58 | Electrocardiograph Report ---
Arrey Percello Test Date: 2018-05-04 Pat Name: Maribel Cobb Department: EXAM8 Room: 06 Gender: F Learning Disabilities Specialist: : [id number] Requested By: Maximo Guerrero Order Number: [id number] Reading MD: Alvaro Phan Measurements Intervals [place] Rate: 98 P: 56 NM: 154 QRS: 78 QRSD: 90 T: 5 QT: 374 QTc: 478 Interpretive Statements Sinus rhythm Electronically Signed On 05-05-2018 12:56:28 EDT by Alvaro Phan
[2018-05-05 16:18] VITALS: BP 131/70
[2018-05-05 16:54] LABS: Bilirubin,Urine Negative (Negative); Blood,Urine Negative (Negative); Clarity,Urine Cloudy (Clear); Color,Urine Yellow (Yellow); Glucose,Urine (UA) Normal (Normal); Ketones,Urine Negative (Negative); Leukocyte Esterase,Urine Large (Negative); Nitrite,Urine Negative (Negative); Protein,Urine Negative (Neg-Trace); Specific Gravity,Urine 1.017 (1.010-1.025); Urobilinogen,Urine Normal (Normal)
[2018-05-05 16:55] LABS: Bacteria,Urine Few per hpf (None-Few); Hyaline Casts,Urine None Seen per lpf (None-Few); RBC,Urine 0-3 per hpf (0-3); Squamous Epithelial Cell,Urine Many per lpf (None-Few); WBC,Urine 30-50 per hpf (0-3)
--- NOTE | 2018-05-05 17:32 | Discharge Summary ---
<Donald Kleinbh - Last Filed: 05/05/18 18:02> - NOTES TO OUTPATIENT PROVIDER Notes to Outpatient Provider: - Follow-up with PCP for referral to a neurologist Orders not resulted at time of discharge: Pending orders 05/04/18 23:57 Occult Blood,Stool [BF] Routine 05/05/18 05:27 Homocysteine AM 0400 MMA (VIT B12 STATUS) AM 04005/05/18 14:06 MR cervical spine wo con [MR] Stat 05/06/18 04:00 CBC [Complete Blood Count] [HEME] AM 0400 Date of Encounter: 05/05/18 Time of Encounter: 10:30 Hospital course: Ms. Cobb is a 62 year old female a past medical history of diabetes, hypertension, dyslipidemia and menieres disease who was admitted to the ED with acute onset left-sided weakness, vomiting and vertigo. Patient endorsed that this happened yesterday afternoon after waking up from from a nap at 3 PM . She also had tinnitus and dizziness which worse with movements along with projectile vomiting. Initial workup in the ED was negative for any midline shift, intracranial masses, EKG and troponins were negative. CT and MRI of her neck and head awere negative for any intracranial pathology. Patient has a chronic history of Meniere's disease and takes hydrochlorothiazide 10 mg and Zofran. Patient was seen by the neurologist here at [facility] and based upon her symptoms, it was inferred that her symptoms are related to underlying migrainous pathophysiology. At this evening all symptoms of vertigo, intense photophobia, phonophobia and headaches have resolved. Patient has been deemed fit to be discharged from the hospital . - Time Spent with Patient Total time spent providing and/or coordinating discharge services: - Discharge Medications Prescriptions: Ferrous Sulfate 325 mg PO DAILY #30 tablet Home Medications: Allopurinol [Zyloprim 100 MG] 100 mg PO DAILY 03/25/16 [History] Atorvastatin [Lipitor] 10 mg PO HS 03/25/16 [History] Lisinopril [Zestril] 10 mg PO DAILY 03/25/16 [History] Meclizine HCl [Verticalm] 25 mg PO TID PRN #15 tablet 03/25/16 [Rx] Venlafaxine [Effexor] 37.5 mg PO DAILY 03/25/16 [History] Aspirin Enteric Coated [Aspirin EC] 81 mg PO DAILY 05/04/18 [History] Fenofibrate,Micronized [Fenofibrate] 134 mg PO DAILY 05/04/18 [History] Metformin HCl 1,000 mg PO BID 05/04/18 [History] Ferrous Sulfate 325 mg PO DAILY #30 tablet 05/05/18 [Rx] Allergies/Adverse Reactions: 3 Allergy/AdvReac Type Severity Reaction Status Date / Time cephalexin Allergy Anaphylaxis Verified 03/25/16 16:19 Penicillins Allergy Anaphylaxis Verified 05/06/17 13:55 Sulfa (Sulfonamide Allergy Swelling Verified 05/06/17 13:55 Antibiotics) of Lip/Tongue/Throat Tetracyclines Allergy Anaphylaxis Verified 05/06/17 13:55 acetaminophen [From Percocet] AdvReac Hallucinati Verified 05/06/17 13:55 ng Oxycodone [From Percocet] AdvReac Hallucinati Verified 05/06/17 13:55 ng Date of admission: 05/04/18 22:29 Primary care physician: Lesli Chavez MD Consults: 05/04/18 23:38 Consult to Neurology [CONS] Routine Consulting Provider: [facility] Reason for Consult: 62 year old woman with acute onset left hemiparesis and diplopia with difficulty keeping left eyelid open and ongoing paretic left side with numbness. Call Completed: No Consult to Physical Therapy [CONS] Routine Comment: Evaluate, develop and implement POC Reason for Consult: Admitted for left hemiparesis of acute onset. Does patient have active BEDREST order?: No Is patient medically & hemodynamically stable?: Yes Patient assessed for mobility or mobilized this visit?: Yes 05/05/18 01:30 Consult to Nutrition [CONS] Routine Comment: Consulting Provider: NUTRITION Reason for Dietary Consult: MST Score - Constitutional Vitals: Temp Pulse Resp BP Pulse Ox 100.0 F H 94 16 131/70 95 05/05/18 16:14 05/05/18 16:14 05/05/18 16:14 05/05/18 16:14 05/05/18 16:14 General appearance: Present: cooperative, mild distress, A&O X 3, answers questions appropriately Exam: General: normal affect, in no acute distress Eyes: ptosis L eye, no conjunctival injection CV: RRR, no murmurs, no edema Resp: CTAB, no wheezes Abd: soft, nontender, normal bowel sounds Skin: no rashes, bruises Neuro: Sensory and motor functions intact, cerebellar function intact, reflexes 2+ , - Patient Status Disposition: Home, Self-Care Condition: Fair Overall status at discharge: patient is progressing back to baseline - Discharge Instructions Follow Up With: Lesli Chavez MD [Primary Care Provider] - 05/08/18 10:30 am Additional Instructions: - Follow-up with neurologist as an outpatient for further management of Vestibular migraine. - Follow up with manager payer for Meniere's disease -Consider referral to vestibular therapy for Meniere's disease. -Seated Vestibular Head and Shoulder Exercises -Vestibular Eye Exercises - Diet and Activity Activity: resume usual activities as tolerated Diet: diabetic diet, low fat, low cholesterol <Maximo Guerrero - Last Filed: 05/05/18 19:47> Orders not resulted at time of discharge: Pending orders 05/04/18 23:57 Occult Blood,Stool [BF] Routine 05/05/18 05:27 Homocysteine AM 0400 MMA (VIT B12 STATUS) AM 0400 Date of Encounter: 05/05/18 - Discharge Diagnosis (1) Vestibular migraine Priority: Primary Status: Resolved (2) Diabetes Priority: Secondary Status: Chronic Qualifiers: Diabetes mellitus type: type 2 Diabetes mellitus termite helper insulin use: without senior living use Diabetes mellitus complication status: with hyperglycemia Qualified Code(s): E11.65 - Type 2 diabetes mellitus with hyperglycemia (3) Hypertension Priority: Secondary Status: Chronic Qualifiers: Hypertension type: essential hypertension Qualified Code(s): I10 - Essential (primary) hypertension (4) Thyroid nodule Priority: Secondary Status: Chronic (5) Vertigo Priority: Secondary Status: Resolved Hospital course: Ms. Cobb is a 62 year old female - Time Spent with Patient Total time spent providing and/or coordinating discharge services: Date of admission: 05/04/18 22:29 Primary care physician: Lesli Chavez MD Consults: 05/04/18 23:38 Consult to Neurology [CONS] Routine Consulting Provider: [facility] Reason for Consult: 62 year old woman with acute onset left hemiparesis and diplopia with difficulty keeping left eyelid open and ongoing paretic left side with numbness. Call Completed: No Consult to Physical Therapy [CONS] Routine Comment: Evaluate, develop and implement POC Reason for Consult: Admitted for left hemiparesis of acute onset. Does patient have active BEDREST order?: No Is patient medically & hemodynamically stable?: Yes Patient assessed for mobility or mobilized this visit?: Yes 05/05/18 01:30 Consult to Nutrition [CONS] Routine Comment: Consulting Provider: NUTRITION Reason for Dietary Consult: MST Score - Constitutional Vitals: Temp Pulse Resp BP Pulse Ox 100.0 F H 94 16 131/70 95 05/05/18 16:14 05/05/18 16:14 05/05/18 16:14 05/05/18 16:14 05/05/18 16:14 - Attending Attestation I examined this patient and my medical decision-making was reviewed with the Resident Physician on 05/05/18. I agree with the documented findings, disposition and treatment plan as described except to the extent set forth below. Ms Cobb has been in observation for vertigo and parasthesias. She is now afebrile and symptoms have resolved. She has been seen by neurology and is OK to go home. Exam alert Comfortable Mucus membranes dry Heart reg No wheeze Plan D/C home today.
[2018-05-05] MEDS ORDERED: Insulin LISPRO 300 UNITS/3 ML VIAL SQ SCH (21:00)
== END 2018-05-05 18:25 | disposition home or self-care (01) ==
LOC: 2NNU 19:52 → EMEROOARM 19:52 → SUATTDRO 22:29 → 2NNU 23:42
PROVIDERS: ADMIT Internal Medicine; ATTEND Internal Medicine

== ENCOUNTER 2020-09-28 13:35 | Observation (INO) ==
[2020-09-28] MEDS ORDERED: Ondansetron 4 MG/2 ML VIAL IVP ONE (13:39)
[2020-09-28] MEDS ORDERED: Isovue-370 500 ML BOTTLE IVP ONE (13:39)
[2020-09-28 13:54] LABS: Hematocrit 40.1 % (35.3-44.9); Hemoglobin 12.9 g/dL (11.5-15.4); Mean Corpuscular HGB Conc 32.2 g/dL (31.6-35.5); Mean Corpuscular Volume 87.2 fL (83.0-100.0); Mean Platelet Volume 9.5 fL (9.4-12.4); Platelet Count 533 K/mcL (140-400); Red Cell Distribution Width 14.1 % (11.5-14.5); White Blood Count 11.2 K/mcL (4.3-11.1)
[2020-09-28 14:02] LABS: INR 1.1; Prothrombin Time 13.1 Seconds (9.4-12.1)
[2020-09-28 14:04] LABS: Activated Partial Thrombo Time 26.7 Seconds (26.0-36.0)
[2020-09-28] MEDS ORDERED: Ondansetron 4 MG/2 ML VIAL ONE (14:07)
[2020-09-28] MEDS ORDERED: Metoclopramide 10 MG/2 ML VIAL IVP ONE (14:08)
[2020-09-28 14:14] LABS: BUN/Creatinine Ratio 14 (6-26); Blood Urea Nitrogen 15 mg/dL (8-23); Calcium 10.2 mg/dL (8.6-10.3); Carbon Dioxide 22 mEq/L (23-29); Chloride 102 mEq/L (98-107); Glucose 145 mg/dL (70-105); Osmolality,Calculated 285 (280-300); Potassium 4.2 mEq/L (3.5-5.1); Sodium 136 mEq/L (136-145); Troponin I < 0.03 ng/mL (< 0.04); eGFR For African Americans > 60 (> 60); eGFR For Non-African Americans 53 (> 60)
[2020-09-28] MEDS ORDERED: Perflutren Lipid Microsphere 1.3 ML in 0.9 % Sodium Chloride 8.7 ML IVP PRN (15:11)
[2020-09-28] MEDS ORDERED: Prochlorperazine 10 MG/2 ML VIAL IVP PRN (15:13)
[2020-09-28] MEDS ORDERED: Naloxone 0.4 MG/ML INJ IVP PRN (15:13)
[2020-09-28] MEDS ORDERED: Dextrose Gel 15 GM/37.5 ML TUBE PO PRN ×2 (15:19)
[2020-09-28] MEDS ORDERED: D5% in Water 1,000 ML IVC PRN (15:19)
[2020-09-28] MEDS ORDERED: *HR* Dextrose 50 % in Water (Vial) 50 ML VIAL IVP PRN (15:19)
[2020-09-28] MEDS: Insulin LISPRO 300 UNITS/3 ML VIAL SUBQ SCH ×2 (17:37→20:17)
[2020-09-28] MEDS ORDERED: Gadolinium Contrast Agent (WT Based) IV PRN (22:07)
[2020-09-28] MEDS ORDERED: 0.9 % Sodium Chloride 1,000 ML IVC SCH (22:15)
[2020-09-29] MEDS: Insulin LISPRO 300 UNITS/3 ML VIAL SUBQ SCH ×4 (00:21→12:59)
[2020-09-29 02:07] LABS: Hematocrit 36.7 % (35.3-44.9); Hemoglobin 11.9 g/dL (11.5-15.4); Mean Corpuscular HGB Conc 32.4 g/dL (31.6-35.5); Mean Corpuscular Hemoglobin 28.1 pg (28.0-33.3); Mean Corpuscular Volume 86.6 fL (83.0-100.0); Mean Platelet Volume 9.9 fL (9.4-12.4); Platelet Count 480 K/mcL (140-400); Red Blood Count 4.24 M/mcL (3.82-4.97); Red Cell Distribution Width 14.2 % (11.5-14.5); White Blood Count 16.8 K/mcL (4.3-11.1)
[2020-09-29 02:15] LABS: INR 1.2; Prothrombin Time 13.4 Seconds (9.4-12.1)
[2020-09-29 02:17] LABS: Activated Partial Thrombo Time 29.7 Seconds (26.0-36.0)
[2020-09-29 02:22] LABS: BUN/Creatinine Ratio 16 (6-26); Blood Urea Nitrogen 16 mg/dL (8-23); Calcium 9.9 mg/dL (8.6-10.3); Carbon Dioxide 23 mEq/L (23-29); Chloride 102 mEq/L (98-107); Chol/HDL Ratio 3.2 (0-4.9); Cholesterol 190 mg/dL (< 200); Glucose 107 mg/dL (70-105); HDL Cholesterol 59 mg/dL (40-59); LDL Cholesterol,Calculated 108 mg/dL (< 100); Magnesium 2.1 mg/dL (1.6-2.6); Osmolality,Calculated 284 (280-300); Potassium 3.9 mEq/L (3.5-5.1); Sodium 136 mEq/L (136-145); Triglycerides 113 mg/dL (< 150); eGFR For African Americans > 60 (> 60); eGFR For Non-African Americans 55 (> 60)
[2020-09-29 02:31] LABS: Troponin I < 0.03 ng/mL (< 0.04)
[2020-09-29 02:40] LABS: Thyroid Stimulating Hormone 0.018 mcIU/mL (0.340-5.600)
[2020-09-29 02:48] LABS: Estimated Average Glucose 126 mg/dl
[2020-09-29] MEDS ORDERED: Aspirin Enteric Coated 81 MG Tablet PO SCH (09:00)
[2020-09-29 11:13] VITALS: BP 146/77
[2020-09-29] MEDS ORDERED: Acetaminophen IV 1,000 MG/100 ML BAG IVPB ONE (11:30)
[2020-09-29] MEDS ORDERED: Perflutren Lipid Microsphere 1.3 ML in 0.9 % Sodium Chloride 8.7 ML IVP PRN (11:46)
[2020-09-29 11:48] LABS: Triiodothyronine (T3) Free 2.51 pg/mL (2.50-3.90)
[2020-09-29] MEDS ORDERED: levoFLOXacin 750 MG/150 ML 750 MG/150 ML BAG IVPB SCH (15:15)
== END 2020-09-29 15:27 | disposition short-term general hospital (02) ==
LOC: 3BNU 13:35 → EMEROOARM 13:35 → SUATTDRO 15:00 → 3BNU 15:40
PROVIDERS: ADMIT Internal Medicine; ATTEND Pharmacist

== ENCOUNTER 2021-05-29 18:44 | Inpatient (IN) ==
[2021-05-29] MEDS ORDERED: 0.9 % Sodium Chloride 500 ML IVC ONE (19:17)
[2021-05-29 19:25] LABS: Basophils # 0.1 K/mcL (0.0-0.2); Basophils % 0.6 %; Eosinophils # 0.3 K/mcL (0.0-0.6); Eosinophils % 2.2 %; Hematocrit 37.6 % (35.3-44.9); Hemoglobin 12.4 g/dL (11.5-15.4); Immature Granulocytes % 0.6 % (0-4); Lymphocytes # 3.5 K/mcL (0.6-4.6); Lymphocytes % 24.8 %; Mean Corpuscular Hemoglobin 29.2 pg (28.0-33.3); Mean Corpuscular Volume 88.7 fL (83.0-100.0); Mean Platelet Volume 9.8 fL (9.4-12.4); Monocytes # 0.9 K/mcL (0.0-1.3); Monocytes % 6.3 %; Neutrophils # 9.3 K/mcL (1.6-8.9); Platelet Count 559 K/mcL (140-400); Red Blood Count 4.24 M/mcL (3.82-4.97); Red Cell Distribution Width 14.1 % (11.5-14.5); Segmented Neutrophils % 65.5 %; White Blood Count 14.2 K/mcL (4.3-11.1)
[2021-05-29] MEDS ORDERED: Aspirin 81 MG TAB.CHEW PO ONE (19:56)
[2021-05-29 20:06] LABS: Alanine Aminotransferase 19 Units/L (7-52); Albumin 4.3 g/dL (3.5-5.7); Albumin/Globulin Ratio 1.2 (1.1-2.2); Alkaline Phosphatase 71 Units/L (34-104); Aspartate Amino Transferase 30 Units/L (13-39); BUN/Creatinine Ratio 18 (6-26); Bilirubin,Indirect 0.4 mg/dL (0.0-1.0); Bilirubin,Total 0.4 mg/dL (0.3-1.0); Blood Urea Nitrogen 26 mg/dL (8-23); Calcium 10.1 mg/dL (8.6-10.3); Carbon Dioxide 24 mEq/L (23-29); Chloride 98 mEq/L (98-107); Globulin 3.6 g/dL (2.4-3.5); Glucose 145 mg/dL (70-105); Lipase 17 Units/L (11-82); Osmolality,Calculated 285 (280-300); Potassium 3.6 mEq/L (3.5-5.1); Sodium 134 mEq/L (136-145); Thyroid Stimulating Hormone 0.023 mcIU/mL (0.340-5.600); Total Protein 7.9 g/dL (6.4-8.9); Troponin I < 0.03 ng/mL (< 0.04); eGFR For African Americans 45 (> 60); eGFR For Non-African Americans 37 (> 60)
[2021-05-29 20:30] LABS: Influenza A PCR Negative (Negative); Influenza B PCR Negative (Negative); Resp. Syncytial Virus PCR Negative (Negative)
[2021-05-29 20:39] LABS: Magnesium 1.5 mg/dL (1.6-2.6)
[2021-05-29 20:39] LABS: SARS-CoV-2 by PCR (In House) Negative (Negative)
[2021-05-29 20:46] LABS: Bilirubin,Urine Negative (Negative); Blood,Urine Negative (Negative); Clarity,Urine Clear (Clear); Color,Urine Light-Yellow (Yellow); Glucose,Urine (UA) Normal (Normal); Ketones,Urine Negative (Negative); Leukocyte Esterase,Urine Small (Negative); Mucus,Urine Few per lpf (None-Few); Nitrite,Urine Negative (Negative); PH,Urine 6.5 pH Units (5.0-8.0); Protein,Urine Negative (Neg-Trace); RBC,Urine 0-3 per hpf (0-3); Specific Gravity,Urine 1.013 (1.010-1.025); Squamous Epithelial Cell,Urine Few per hpf (None-Few); Urobilinogen,Urine Normal (Normal)
[2021-05-29] MEDS ORDERED: 0.9 % Sodium Chloride 1,000 ML IVC ONE (20:53)
[2021-05-29] MEDS ORDERED: Isovue-370 500 ML BOTTLE IVP ONE (21:23)
[2021-05-29] MEDS ORDERED: Perflutren Lipid Microsphere 1.3 ML in 0.9 % Sodium Chloride 8.7 ML IVP PRN (23:28)
[2021-05-29] MEDS ORDERED: Ondansetron 4 MG/2 ML VIAL IVP PRN (23:29)
[2021-05-29] MEDS ORDERED: Acetaminophen 325 MG TABLET PO PRN (23:29)
[2021-05-29] MEDS ORDERED: Naloxone 0.4 MG/ML INJ IVP PRN (23:29)
[2021-05-30] MEDS ORDERED: Ipratropium/Albuterol Neb 3 ML IH PRN (00:45)
[2021-05-30] MEDS ORDERED: D5% in Water 1,000 ML IVC PRN (01:03)
[2021-05-30] MEDS ORDERED: *HR* Dextrose 50 % in Water (Syg) 50 ML SYRINGE IVP PRN (01:03)
[2021-05-30] MEDS ORDERED: Dextrose Gel 15 GM/37.5 ML TUBE PO PRN ×2 (01:03)
[2021-05-30 01:48] LABS: Basophils % 0.3 %; Eosinophils # 0.4 K/mcL (0.0-0.6); Eosinophils % 2.8 %; Hematocrit 30.5 % (35.3-44.9); Immature Granulocytes % 0.6 % (0-4); Lymphocytes # 4.7 K/mcL (0.6-4.6); Lymphocytes % 33.1 %; Mean Corpuscular HGB Conc 33.8 g/dL (31.6-35.5); Mean Corpuscular Hemoglobin 29.7 pg (28.0-33.3); Mean Corpuscular Volume 87.9 fL (83.0-100.0); Mean Platelet Volume 9.7 fL (9.4-12.4); Monocytes # 1.1 K/mcL (0.0-1.3); Monocytes % 7.9 %; Neutrophils # 7.8 K/mcL (1.6-8.9); Platelet Count 408 K/mcL (140-400); Red Blood Count 3.47 M/mcL (3.82-4.97); Red Cell Distribution Width 13.8 % (11.5-14.5); Segmented Neutrophils % 55.3 %; White Blood Count 14.1 K/mcL (4.3-11.1)
[2021-05-30 01:49] LABS: Hemoglobin 10.3 g/dL (11.5-15.4)
[2021-05-30 01:54] LABS: INR 1.3; Prothrombin Time 14.2 Seconds (9.4-12.1)
[2021-05-30 02:09] LABS: Calcium 8.9 mg/dL (8.6-10.3); Estimated Average Glucose 108 mg/dl; Hemoglobin A1C 5.4 %; Magnesium 2.2 mg/dL (1.6-2.6); Potassium 3.8 mEq/L (3.5-5.1)
[2021-05-30 02:21] LABS: Triiodothyronine (T3) Free 3.22 pg/mL (2.50-3.90)
[2021-05-30] MEDS: 0.9 % Sodium Chloride 1,000 ML IVC SCH ×2 (04:00→17:06)
[2021-05-30] MEDS: *HR* Heparin 5,000 UNIT/ML VIAL SQ SCH ×3 (05:44→21:13)
[2021-05-30] MEDS ORDERED: Regadenoson 0.4 MG/5 ML SYRINGE IVP ONE (09:03)
[2021-05-30] MEDS: Insulin LISPRO 300 UNITS/3 ML VIAL SUBQ SCH ×2 (10:09→14:14)
[2021-05-30] MEDS: Aspirin Enteric Coated 81 MG Tablet PO SCH (17:02)
[2021-05-30] MEDS: hydroCHLOROthiazide 25 MG TABLET PO SCH (17:03)
[2021-05-30] MEDS: lisinopriL 10 MG TABLET PO SCH (17:05)
[2021-05-31 00:55] LABS: Hematocrit 29.4 % (35.3-44.9); Hemoglobin 9.8 g/dL (11.5-15.4); Mean Corpuscular HGB Conc 33.3 g/dL (31.6-35.5); Mean Corpuscular Hemoglobin 29.3 pg (28.0-33.3); Mean Corpuscular Volume 87.8 fL (83.0-100.0); Mean Platelet Volume 9.8 fL (9.4-12.4); Platelet Count 376 K/mcL (140-400); Red Blood Count 3.35 M/mcL (3.82-4.97); Red Cell Distribution Width 13.8 % (11.5-14.5); White Blood Count 10.4 K/mcL (4.3-11.1)
[2021-05-31 01:15] LABS: BUN/Creatinine Ratio 18 (6-26); Blood Urea Nitrogen 20 mg/dL (8-23); Calcium 9.2 mg/dL (8.6-10.3); Carbon Dioxide 25 mEq/L (23-29); Chloride 104 mEq/L (98-107); Glucose 122 mg/dL (70-105); Osmolality,Calculated 286 (280-300); Potassium 3.6 mEq/L (3.5-5.1); Sodium 136 mEq/L (136-145); eGFR For African Americans > 60 (> 60); eGFR For Non-African Americans 50 (> 60)
[2021-05-31] MEDS: *HR* Heparin 5,000 UNIT/ML VIAL SQ SCH ×3 (06:21→20:48)
[2021-05-31] MEDS: Insulin LISPRO 300 UNITS/3 ML VIAL SUBQ SCH ×4 (08:14→17:59)
[2021-05-31] MEDS: Fenofibrate 54 MG TABLET PO SCH (08:22)
[2021-05-31] MEDS: Aspirin Enteric Coated 81 MG Tablet PO SCH (08:22)
[2021-05-31] MEDS: hydroCHLOROthiazide 25 MG TABLET PO SCH (08:22)
[2021-05-31] MEDS: lisinopriL 10 MG TABLET PO SCH (08:22)
[2021-05-31] MEDS ORDERED: Isovue-370 500 ML BOTTLE IVP ONE (21:57)
[2021-06-01] MEDS: *HR* Heparin 5,000 UNIT/ML VIAL SQ SCH ×2 (06:13→13:56)
[2021-06-01] MEDS: Insulin LISPRO 300 UNITS/3 ML VIAL SUBQ SCH ×2 (07:31→11:31)
[2021-06-01] MEDS: Aspirin Enteric Coated 81 MG Tablet PO SCH (08:54)
[2021-06-01] MEDS: hydroCHLOROthiazide 25 MG TABLET PO SCH (08:54)
[2021-06-01] MEDS: lisinopriL 10 MG TABLET PO SCH (08:54)
[2021-06-01] MEDS: Fenofibrate 54 MG TABLET PO SCH (08:54)
[2021-06-01 15:58] VITALS: BP 116/74; PULSE 102; TEMP 98.7; O2SAT 97
== END 2021-06-01 17:31 | disposition home or self-care (01) | DRG 65 ==
LOC: 3BNU 18:44 → EMEROOARM 18:44 → SUATTDRO 23:14 → 3BNU 05-30 01:04
PROVIDERS: ADMIT Student in an Organized Health Care Education/Training Program; ATTEND Registered Nurse